=== PATIENT | female | born 1970 | race Caucasian/White ===

== ENCOUNTER 2017-01-19 05:58 | Emergency (ER) | payer BC ==
[~2017-01-19] VITALS: Ht 162.6 cm; Wt 101.0 kg
[~2017-01-19 05:58] MED LIST: BIOT50004 PO; NORCOTAB PO; PERC5TAB12 PO; POTA595T8 PO; VITA500T PO; VITATAB11 PO
[2017-01-19] MEDS ORDERED: CYCL5TAB PO (06:10)
[2017-01-19] MEDS ORDERED: ZOLO25TA PO (06:10)
[2017-01-19] MEDS ORDERED: KETOROLAC 60 MG/2 ML VIAL (J1885) IM ONE (07:00)
[2017-01-19] MEDS ORDERED: KETOROLAC 30 MG/ML VIAL (J1885) As Ordered ONE (07:06)
[2017-01-19 08:03] VITALS: BP 170/88
[2017-01-19] MEDS ORDERED: NAPR500T PO (08:06)
[2017-01-19] MEDS ORDERED: VALI5TAB PO (08:06)
== END 2017-01-19 08:13 | disposition home or self-care (01) ==
LOC: M ED 05:58
DX: M54.42 Lumbago with sciatica, left side (principal); M51.9 Unspecified thoracic, thoracolumbar and lumbosacral intervertebral disc disorder; F41.9 Anxiety disorder, unspecified; Z91.040 Latex allergy status; Z87.891 Personal history of nicotine dependence; Z79.899 Other long term (current) drug therapy
CPT/HCPCS: 96372; 99282; J1885; J3360

== ENCOUNTER → 2018-03-11 | Outpatient (REF) | payer BC ==
[2018-03-13 14:50] LABS: HPV HYBRID CAPTURE II Negative (Negative)
== END ==
LOC: M SFHCWAGY 08:23
DX: Z12.72 Encounter for screening for malignant neoplasm of vagina (principal)

== ENCOUNTER → 2018-03-11 | Outpatient (CLI) | payer BC | LOC: M WHC 08:05 | DX: Z12.31 Encounter for screening mammogram for malignant neoplasm of breast (principal) | CPT/HCPCS: 77067 ==

== ENCOUNTER → 2019-05-04 | Outpatient (CLI) | payer BC, OTHER ==
[~2019-05-04] MED LIST changes: +CYCL5TAB PO; +HYDR-3715 PO; +NAPR-837 PO; -NORCOTAB PO; +VALI5TAB PO; +ZOLO25TA PO
--- NOTE | 2019-05-04 12:18 | REPMRS ---
Patient History The patient states she has not had a clinical breast exam in over a year. No Hormone Replacement Therapy Digital Woman Screen Mammo: May 04, 2019 - Exam #: [id number] Bilateral CC and MLO view(s) were taken. Technologist: Joanne Ashton, Technologist Prior study comparison: March 11, 2018, bilateral digital woman screen mammo performed at [facility]. December 25, 2015, digital woman screen mammo performed at [facility]. November 13, 2011, digital woman screen mammo performed at [facility]. FINDINGS: There are scattered fibroglandular densities. There has been no change in the appearance of the mammogram from the prior studies. There is a mild amount of scattered fibroglandular density which is fairly symmetric. There is no interval development of dominant mass, architectural distortion, or grouped microcalcification suggestive of malignancy. 3-D tomosynthesis shows no additional findings. Assessment: BI-RADS/ACR category 1 mammogram. Negative Mammogram. Recommendation Routine screening mammogram of both breasts in 1 year (for women over age 40). This patient's Lifetime Breast Cancer Risk is estimated at 13.0 %. This mammogram was interpreted with the aid of an FDA-approved computer-aided dectection system. Electronically Signed By: Sriram Abel MD 05/04/19 [id number]
== END ==
LOC: M WHC 08:06
PROVIDERS: ATTEND Nurse Practitioner Family
DX: Z12.31 Encounter for screening mammogram for malignant neoplasm of breast (principal)

== ENCOUNTER → 2022-05-19 | Outpatient (CLI) | payer OTHER ==
[~2022-05-19] MED LIST changes: +VITA-243 PO; -VITA500T PO
== END ==
LOC: M WHC 14:47
PROVIDERS: ATTEND Nurse Practitioner Family
DX: Z12.31 Encounter for screening mammogram for malignant neoplasm of breast (principal)

== ENCOUNTER → 2022-07-08 | Outpatient (REF) | payer OTHER | LOC: M LAB REF 11:49 | PROVIDERS: ATTEND Internal Medicine Gastroenterology | DX: K59.1 Functional diarrhea (principal) ==

== ENCOUNTER 2022-11-03 07:22 | Day surgery (SDC) | payer OTHER ==
[~2022-11-03] VITALS: Ht 162.6 cm; Wt 97.1 kg
[~2022-11-03 07:22] MED LIST changes: +CIDA500T2 PO; +COLL1CAP PO; +EQL50TAB2 PO; +LEXA5TAB13 PO; +LOSA50TA5 PO; +MAGN400C PO; +MULT-90 PO; +NS 1,000 ML IV ONE; +OMEP40CA5 PO; +SELE200T10 PO; +VITA100065 PO; +VITA100093 PO; +VITA500C24 PO
[2022-11-03] MEDS ORDERED: fentaNYL 100 MCG/2 ML INJECTION As Ordered ONE (08:37)
[2022-11-03] MEDS ORDERED: LIDOCAINE 2% 100MG/5ML SDV (FOR ANES.) As Ordered ONE (08:38)
[2022-11-03] MEDS ORDERED: propofoL 200 MG/20 ML VIAL As Ordered ONE (08:38)
[2022-11-03 09:40] VITALS: BP 148/70
== END 2022-11-03 10:35 | disposition home or self-care (01) ==
LOC: M OPP 07:22
PROVIDERS: ATTEND Internal Medicine Gastroenterology
DX: Z12.11 Encounter for screening for malignant neoplasm of colon (principal); K64.0 First degree hemorrhoids; K57.30 Diverticulosis of large intestine without perforation or abscess without bleeding; R12 Heartburn; K44.9 Diaphragmatic hernia without obstruction or gangrene
CPT/HCPCS: 43239; 45378; 88305; J3010